=== PATIENT | female | born 1945 | race Caucasian/White ===

== ENCOUNTER → 2019-02-23 | Outpatient (CLI) | payer OTHER | END | disposition home or self-care (01) | LOC: PCVCCLINIC 15:30 | PROVIDERS: ATTEND Internal Medicine | DX: R07.9 Chest pain, unspecified (principal); I10 Essential (primary) hypertension; E78.5 Hyperlipidemia, unspecified; I95.1 Orthostatic hypotension; K21.9 Gastro-esophageal reflux disease without esophagitis; Z79.82 Long term (current) use of aspirin; Z88.8 Allergy status to other drugs, medicaments and biological substances; Z79.899 Other long term (current) drug therapy; Z83.3 Family history of diabetes mellitus; Z82.3 Family history of stroke; Z90.49 Acquired absence of other specified parts of digestive tract; Z90.710 Acquired absence of both cervix and uterus | CPT/HCPCS: G0463 ==

== ENCOUNTER → 2019-03-04 | Outpatient (CLI) | payer OTHER ==
[~2019-03-04] MED LIST: REGADENOSON 0.4 MG/5 ML DISP.SYRIN. IV ONE
--- NOTE | 2019-03-04 11:27 | PCVCIMAG ---
APPROVED REPORT Study performed: 03/04/2019 07:52:39 EXAM: Comprehensive 2D, Doppler, and color-flow Echocardiogram Patient Location: Echo lab Status: routine BSA: 1.79 HR: 80 bpmBP: 130/76 mmHg Rhythm: NSR Other Information Study Quality: Adequate Risk Factors: Cardiac Risk Factors: HTN Indications Murmur Chest Pain 2D Dimensions IVSd: 12.56 (7-11mm)LVOT Diam: 19.86 (18-24mm) LVDd: 28.08 mm PWd: 13.37 (7-11mm) LVDs: 23.28 (25-40mm) Left Atrium: 32.43 (27-40mm) Aortic Root: 33.44 mm LV Single Plane 4CH: 56.38 % LV Single Plane 2CH: 51.93 % Biplane EF: 54.4 % Volumes Left Atrial Volume (Systole) Single Plane 4CH: 46.97 mLSingle Plane 2CH: 47.31 mL LA ESV Index: 27.00 mL/m2 Aortic Valve AoV Peak Vinicio.: 1.91 m/s AO Peak Gr.: 14.57 mmHgLVOT Max P.43 mmHg LVOT Max V: 0.93 m/s BERLIN Vmax: 1.50 cm2 AI Vmax: 4.73 m/s AI Wilson: 3.21 m/s2 AI PHT: 428.19 ms Mitral Valve E/A Ratio: 0.7 MV Decel. Time: 307.63 ms MV E Max Vinicio.: 0.92 m/s MV A Vinicio.: 1.35 m/s IVRT: 159.17 ms Pulmonary Valve PV Peak Vinicio.: 0.89 m/sPV Peak Gr.: 3.16 mmHg Pulmonary Vein P Vein S: 0.23 m/s P Vein D: 0.27 m/s P Vein S/D Ratio: 0.85 Tricuspid Valve TR Peak Vinicio.: 2.63 m/s TR Peak Gr.: 27.79 mmHg Left Ventricle The left ventricle is normal size. There is normal LV segmental wall motion. Mild concentric left ventricular hypertrophy. Left ventricular systolic function is normal. The left ventricular ejection fraction is within the normal range. LVEF is 55%. Grade I - abnormal relaxation pattern. Right Ventricle The right ventricle is normal size. The right ventricular systolic function is normal. Atria The left atrium size is normal. The right atrium size is normal. Aortic Valve Moderate aortic valve sclerosis. Mild to moderate aortic regurgitation. There is no aortic valvular stenosis. Mitral Valve The mitral valve is normal in structure. Mild mitral regurgitation. No evidence of mitral valve stenosis. Tricuspid Valve The tricuspid valve is normal in structure. Mild tricuspid regurgitation with PAP of 35 mmHg. Pulmonic Valve The pulmonary valve is normal in structure. There is no pulmonic valvular regurgitation. Great Vessels The aortic root is normal in size. IVC is normal in size and collapses >50% with inspiration. Pericardium There is no pericardial effusion. There is no pleural effusion. <Conclusion> The left ventricle is normal size. LVEF is 55%. Moderate aortic valve sclerosis. Mild to moderate aortic regurgitation. The mitral valve is normal in structure. Mild mitral regurgitation. The tricuspid valve is normal in structure. Mild tricuspid regurgitation with PAP of 35 mmHg. There is no pericardial effusion.
== END | disposition home or self-care (01) ==
LOC: PCVCIMAG 08:04
PROVIDERS: ATTEND Internal Medicine
DX: I08.3 Combined rheumatic disorders of mitral, aortic and tricuspid valves (principal); R07.9 Chest pain, unspecified; R01.1 Cardiac murmur, unspecified
CPT/HCPCS: 78452; 93017; 93306; A9500; J2785